=== PATIENT | male | born 1980 | race Caucasian/White ===

== ENCOUNTER 2016-11-22 20:20 | Emergency (ER) | payer OTHER ==
[~2016-11-22] VITALS: Ht 190.5 cm; Wt 86.2 kg
[2016-11-22 20:20] VITALS: BP 145/80
--- NOTE | 2016-11-22 21:10 | PHYS DOC ---
Past History Past Medical History: No Pertinent History Past Surgical History: No Surgical History Adult General Chief Complaint Chief Complaint: LACERATION/AVULSION HPI HPI Patient is a 36-year-old male who was attempting to prepare cloth for a Batman costume when he asked a lacerated his index fingers left hand. He denies any numbness, tingling to the hand itself denies any weakness in the finger. Pain is minimal with range of motion. Patient denies any foreign body sensation. Patient is right-hand dominant patient's tetanus shot is not up-to-date. Review of Systems Review of Systems Musculoskeletal: Denies back pain or joint pain [] Integument: Denies rash or skin lesions [] Neurologic: denies focal weakness or sensory changes [] Allergies Allergies Allergies Coded Allergies Type Severity Reaction Last Updated Verified No Known Drug Allergies 11/22/16 No Physical Exam Physical Exam The patient's vital signs recorded on the chart there with within normal limits. Constitutional: Well developed, well nourished, no acute distress, non-toxic appearance. [] Skin: Warm, dry, no erythema, no rash. Patient is a small laceration on the lateral aspect of the index finger. Patient at length measures approximate 0.3 cm it is shallow as well measuring less than 2 mm in depth and width. Bleeding is well-controlled with full range of motion no tenderness was involved. Patient has good strength to resistance in all flexion and extension motions at the DIP. Extremities: No tenderness, no cyanosis, no clubbing, ROM intact, no edema. [] Neurologic: Alert and oriented X 3, normal motor function, normal sensory function, no focal deficits noted. [] Psychologic: Affect normal, judgement normal, mood normal. [] EKG EKG [] Radiology/Procedures Radiology/Procedures [] Course & Med Decision Making Course & Med Decision Making Pertinent Labs and Imaging studies reviewed. (See chart for details) The patient has a very well approximated clean laceration of the lateral aspect of the left index finger. It'll be approximated using skin glue. Procedure note: Indication laceration index finger. It is located on the left index finger on the lateral aspect of the finger measuring .3 cm by 2 mm x 2 mm in width and depth. No foreign body sensation is noted no active bleeding is noted normal sensation normal strength on exam. Patient had laceration closed with skin adhesive after the wound was cleaned with normal saline and manually scrubbed. Patient tolerated the procedure well. No active bleeding no competitions. [] Dragon Disclaimer Dragon Disclaimer This chart was dictated in whole or in part using Voice Recognition software in a busy, high-work load, and often noisy Emergency Department environment. It may contain unintended and wholly unrecognized errors or omissions. Departure Departure: Impression: Primary Impression: Laceration Disposition: 01 HOME, SELF-CARE Condition: STABLE Referrals: RADHA DENISE DO (PCP) Patient Instructions: Tissue Adhesive Wound Care Additional Instructions: These return for any signs of infection, increasing pain, drainage from the wound looks like it's infected. Please return for any question concerns or might have. JON VERDIN MD Nov 22, 2016 21:10
[2016-11-22] MEDS ORDERED: DIPHTH,PERTUSS(ACELL),TET TOX 0.5 ML DISP.SYRIN. VAX IM ONE (21:15)
== END 2016-11-22 21:27 | disposition home or self-care (01) ==
LOC: ER 20:20
DX: S61.211A Laceration without foreign body of left index finger without damage to nail, initial encounter (principal); W45.8XXA Other foreign body or object entering through skin, initial encounter; Y93.89 Activity, other specified; Y92.89 Other specified places as the place of occurrence of the external cause; Y99.8 Other external cause status
CPT/HCPCS: 12002; 90471; 90715; 99283-25

== ENCOUNTER → 2017-07-14 | Outpatient (CLI) | payer OTHER | END | disposition home or self-care (01) | LOC: SURG 14:47 | PROVIDERS: ATTEND Anesthesiology | DX: M47.817 Spondylosis without myelopathy or radiculopathy, lumbosacral region (principal) | CPT/HCPCS: 99214 ==